=== PATIENT | male | born 1950 | race Caucasian/White ===

== ENCOUNTER 2021-11-03 08:09 | Inpatient (IN) ==
[2021-11-03] MEDS ORDERED: Naloxone 0.4 MG/ML INJ IVP PRN (11:29)
[2021-11-03] MEDS ORDERED: Perflutren Lipid Microsphere 1.3 ML in 0.9 % Sodium Chloride 8.7 ML IVP PRN (11:31)
[2021-11-03] MEDS ORDERED: Ipratropium/Albuterol Neb 3 ML IH SCH (12:00)
[2021-11-03] MEDS ORDERED: Aspirin 325 MG TABLET PO ONE (12:02)
[2021-11-03 12:26] LABS: Hematocrit 43.9 % (37.5-50.1); Hemoglobin 14.3 g/dL (12.9-16.9); Immature Platelets 19.9 % (1.1-6.1); Mean Corpuscular HGB Conc 32.6 g/dL (31.6-35.5); Mean Corpuscular Hemoglobin 27.9 pg (28.0-33.3); Mean Corpuscular Volume 85.6 fL (83.0-100.0); Mean Platelet Volume 14.3 fL (9.4-12.4); Red Blood Count 5.13 M/mcL (4.19-5.50); Red Cell Distribution Width 17.2 % (11.5-14.5); White Blood Count 11.3 K/mcL (4.3-11.1)
[2021-11-03 12:53] LABS: BUN/Creatinine Ratio 13 (6-26); Blood Urea Nitrogen 17 mg/dL (8-23); Calcium 9.6 mg/dL (8.6-10.3); Carbon Dioxide 24 mEq/L (23-29); Chloride 105 mEq/L (98-107); Glucose 105 mg/dL (70-105); Osmolality,Calculated 286 (280-300); Potassium 3.7 mEq/L (3.5-5.1); Sodium 137 mEq/L (136-145); eGFR For African Americans > 60 (> 60); eGFR For Non-African Americans 56 (> 60)
[2021-11-03 12:54] LABS: Magnesium 1.7 mg/dL (1.6-2.6); Phosphorous 3.8 mg/dL (2.7-4.5); Troponin I < 0.03 ng/mL (< 0.04)
[2021-11-03] MEDS: Ipratropium/Albuterol Neb 3 ML IH SCH ×2 (13:44→20:39)
[2021-11-03] MEDS ORDERED: Magnesium Sulfate 1 GM/102 ML PIGGYBACK IVPB ONE (18:37)
[2021-11-03] MEDS: Budesonide/Formoterol 160/4.5 1 PUFF INH IH SCH (20:39)
[2021-11-03] MEDS: Ibuprofen 600 MG TABLET PO PRN (22:10)
[2021-11-04 03:41] LABS: Hematocrit 41.3 % (37.5-50.1); Hemoglobin 13.4 g/dL (12.9-16.9); Immature Platelets 19.5 % (1.1-6.1); Mean Corpuscular HGB Conc 32.4 g/dL (31.6-35.5); Mean Corpuscular Volume 86.2 fL (83.0-100.0); Mean Platelet Volume 14.4 fL (9.4-12.4); Red Blood Count 4.79 M/mcL (4.19-5.50); Red Cell Distribution Width 17.2 % (11.5-14.5); White Blood Count 10.7 K/mcL (4.3-11.1)
[2021-11-04 03:54] LABS: Calcium 8.8 mg/dL (8.6-10.3); Magnesium 1.9 mg/dL (1.6-2.6); Phosphorous 3.9 mg/dL (2.7-4.5); Potassium 3.7 mEq/L (3.5-5.1)
[2021-11-04] MEDS: Ipratropium/Albuterol Neb 3 ML IH SCH ×4 (04:03→21:50)
[2021-11-04] MEDS: Aspirin 81 MG TAB.CHEW PO SCH (08:43)
[2021-11-04] MEDS ORDERED: NON-FORMULARY MEDICATION 1 EACH EACH (Fluticasone/Umeclidin/Vilanter [Trelegy Ellipta 100- IH SCH (09:00)
[2021-11-04] MEDS ORDERED: Tiotropium 10 INH DOSE IH SCH (10:00)
[2021-11-04] MEDS: Budesonide/Formoterol 160/4.5 1 PUFF INH IH SCH ×2 (10:18→21:49)
[2021-11-04] MEDS: 0.9 % Sodium Chloride 1,000 ML IVC SCH (15:39)
[2021-11-04] MEDS: Ibuprofen 600 MG TABLET PO PRN (19:53)
[2021-11-04] MEDS: Magnesium Oxide 400 MG TABLET PO SCH (19:53)
[2021-11-05] MEDS: Ipratropium/Albuterol Neb 3 ML IH SCH ×4 (04:34→23:31)
[2021-11-05] MEDS ORDERED: Acetaminophen 325 MG TABLET PO ONE (05:12)
[2021-11-05] MEDS: *HR* Enoxaparin 40 MG/0.4 ML SYRINGE SQ SCH (05:12)
[2021-11-05 05:39] LABS: Calcium 8.9 mg/dL (8.6-10.3); Potassium 4.1 mEq/L (3.5-5.1)
[2021-11-05] MEDS ORDERED: Regadenoson 0.4 MG/5 ML SYRINGE IVP ONE (06:24)
[2021-11-05] MEDS: Aspirin 81 MG TAB.CHEW PO SCH (09:36)
[2021-11-05] MEDS: Magnesium Oxide 400 MG TABLET PO SCH (09:36)
[2021-11-05] MEDS: Budesonide/Formoterol 160/4.5 1 PUFF INH IH SCH ×2 (10:41→23:31)
[2021-11-05] MEDS ORDERED: *HR* FentaNYL (PF) 100 MCG/2 ML VIAL ONE (15:54)
[2021-11-05] MEDS ORDERED: *HR* Midazolam HCl 2 MG/2 ML VIAL ONE (15:55)
[2021-11-05] MEDS ORDERED: *HR* Heparin 10,000 UNIT/10 ML VIAL ONE (15:55)
[2021-11-05] MEDS ORDERED: ISOVUE-370 200 ML INFUS..BTL ONE (15:55)
[2021-11-05] MEDS ORDERED: Nitroglycerin 1,000 MCG/5 ML VIAL IV ONE (15:55)
[2021-11-05] MEDS ORDERED: 0.9 % Sodium Chloride 1,000 ML ONE (15:55)
[2021-11-05] MEDS ORDERED: Heparin 1,000 UNITS/500 mL 500 ML ONE (15:55)
[2021-11-05] MEDS: 0.9 % Sodium Chloride 1,000 ML IVC SCH (21:07)
[2021-11-05] MEDS: Metoprolol 100 MG TABLET PO SCH (21:09)
[2021-11-06] MEDS: Ipratropium/Albuterol Neb 3 ML IH SCH ×2 (04:10→10:14)
[2021-11-06 05:57] LABS: BUN/Creatinine Ratio 15 (6-26); Blood Urea Nitrogen 16 mg/dL (8-23); Calcium 8.5 mg/dL (8.6-10.3); Carbon Dioxide 25 mEq/L (23-29); Chloride 109 mEq/L (98-107); Glucose 109 mg/dL (70-105); Osmolality,Calculated 292 (280-300); Potassium 3.9 mEq/L (3.5-5.1); Sodium 140 mEq/L (136-145); eGFR For African Americans > 60 (> 60); eGFR For Non-African Americans > 60 (> 60)
[2021-11-06] MEDS: *HR* Enoxaparin 40 MG/0.4 ML SYRINGE SQ SCH (06:12)
[2021-11-06 07:13] VITALS: BP 117/82; PULSE 58; TEMP 97.7
[2021-11-06] MEDS: Aspirin 81 MG TAB.CHEW PO SCH (09:04)
[2021-11-06] MEDS: Metoprolol 100 MG TABLET PO SCH (09:04)
[2021-11-06] MEDS: Magnesium Oxide 400 MG TABLET PO SCH (09:04)
[2021-11-06] MEDS: Budesonide/Formoterol 160/4.5 1 PUFF INH IH SCH (10:14)
[2021-11-06 10:17] VITALS: O2SAT 94
== END 2021-11-06 11:41 | disposition home or self-care (01) | DRG 303 ==
LOC: 3BNU → SUATTDRO 10:52
PROVIDERS: ADMIT Internal Medicine; ATTEND Registered Nurse